=== PATIENT | male | born 1995 | race Native Hawaiian/Other Pacific Islander ===

== ENCOUNTER 2021-09-02 15:05 | Outpatient (CLI) | payer OTHER | END 2021-09-02 19:05 | disposition home or self-care (01) | LOC: LABW 15:05 | PROVIDERS: ATTEND Nurse Practitioner Family | DX: R07.9 Chest pain, unspecified (principal) | CPT/HCPCS: 36415; 82552; 82553; 84484 ==

== ENCOUNTER 2021-10-15 14:41 | Outpatient (CLI) | payer OTHER | END 2021-10-15 22:35 | disposition home or self-care (01) | LOC: RESP 14:41 | PROVIDERS: ATTEND Nurse Practitioner Family | DX: R94.31 Abnormal electrocardiogram [ECG] [EKG] (principal); R07.89 Other chest pain ==

== ENCOUNTER 2021-10-27 10:14 | Outpatient (CLI) | payer OTHER | END 2021-10-27 19:00 | disposition home or self-care (01) | LOC: RESP 10:14 | PROVIDERS: ATTEND Specialist | DX: R07.89 Other chest pain (principal); R94.31 Abnormal electrocardiogram [ECG] [EKG]; R00.2 Palpitations | CPT/HCPCS: 93225 ==